=== PATIENT | female | born 1955 | race Caucasian/White ===

== ENCOUNTER 2021-02-21 09:48 | Emergency (ER) | payer OTHER, SELFPAY ==
--- NOTE | ~2021-02-21 | XR_ITS ---
EXAMINATION: XR lumbar spine min 4V DATE: 02/21/2021 11:41 INDICATION: Chronic left-sided low back pain TECHNIQUE: Anteroposterior, lateral, and bilateral oblique views of the lumbar spine, and cone-down l ateral view of the lumbosacral junction were obtained. COMPARISON: None. FINDINGS: There are 2 mm of retrolisthesis of L3 on L4 and L4 and L5 and 6 mm of anterolisthesis of L 5 on S1. There is no fracture. There is levoscoliosis of the lumbar spine. The vertebral body heights are maintained. There is moderate loss of intervertebral disc space height from L3-4 through L5-S1. Small degenerative osteophytes project from the anterior endplates of multiple vertebral bodies. Ther e is moderate facet osteoarthritis of the lower lumbar spine. IMPRESSION: 1. Moderate lumbar spondylosis without acute findings. Reviewed, dictated and finalized at location A.
[2021-02-21 09:59] VITALS: BP 159/73; PULSE 72; RESP 16; TEMP 36.4; O2SAT 100
[2021-02-21 10:40] LABS: Basophils Absolute Auto 0.1 K/mm3 (0.0-0.1); Basophils Percent Auto 0.8 % (0.2-1.2); Eosinophils Absolute Auto 0.1 K/mm3 (0-0.3); Hematocrit 44.9 % (37.0-47.0); Immature Granulocyte Absolute 0.06 K/mm3 (0.00-0.031); Immature Granulocyte Percent A 0.6 % (0-0.5); Lymphocytes Absolute Auto 1.78 K/mm3 (0.9-3.2); Mean Corpuscular HGB Conc 33.4 g/dl (32-36); Mean Corpuscular Hemoglobin 31.8 pg (26-34); Mean Corpuscular Volume 95.3 fl (80-100); Mean Platelet Volume 10.2 fl (7.4-10.4); Monocytes Absolute Auto 0.8 K/mm3 (0.1-0.6); Monocytes Percent Auto 7.5 % (2.6-8.5); Neutrophils Absolute Auto 7.7 K/mm3 (1.3-6.7); Neutrophils Percent Auto 73.1 % (45.5-73.1); Platelet Count Result 246 k/mm3 (150-375); Red Blood Count 4.71 M/mm3 (4.2-5.4); Red Cell Distribution Width 13.1 % (11.5-14.5); White Blood Count 10.5 K/mm3 (4.5-10.0)
[2021-02-21 10:43] LABS: Add Urine Microscopic? YES; Appearance Urine Clear (Clear); Bilirubin Urine Negative (Negative); Blood Urine 1+ (Negative); Color Urine Straw (Yellow); Glucose Urine UA Negative (Negative); Ketones Urine Negative (Negative); Leukocyte Esterase Ur Negative LEU/UL (Negative); Mucus Urine Rare /lpf; Nitrate Urine Negative (Negative); Protein Urine Negative (Negative); RBC Urine 0-2 /hpf (0-2); Specific Grav Ur 1.006 (1.001-1.035); Squamous Epithelial Cell Urine Moderate /hpf (Few); Urobilinogen Urine Negative mg/dL (<2.0); WBC Urine 0-3 /hpf
[2021-02-21 10:50] LABS: Alanine Aminotransferase 16 U/L (4-35); Albumin Level 4.4 g/dL (3.5-5.1); Alkaline Phosphatase 79 U/L (38-126); Anion Gap 3 mmol/L (8-16); Aspartate Amino Transferase 28 U/L (14-36); Bilirubin,Total 0.3 mg/dL (0.2-1.3); Blood Urea Nitrogen 9 mg/dL (7-17); Calcium 9.3 mg/dL (8.4-10.2); Carbon Dioxide 32 mmol/L (22-30); Chloride 100 mmol/L (98-107); Estimated CRCL calculation 67 ml/min; Estimated Glomerular Filt Rate > 60; Glucose 103 mg/dL (65-105); Sodium 135 mmol/L (137-145)
--- NOTE | 2021-02-21 12:11 | ED.GENADULT ---
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 several days ago went to outside hospital was placed on steroids and a muscle relaxer has only been taking the steroids with some improvement presents today noting that she continues to have pain patient denies any other complaints presents in no distress and ambulates with normal gait Related Data Home Medications Medication Instructions Recorded Confirmed methocarbamol mg 02/21/21 methylprednisolone mg 02/21/21 naproxen sodium [Aleve] mg PRN 02/21/21 Allergies Allergy/AdvReac Type Severity Reaction Status Date / Time amoxicillin Allergy Mild Hives Verified 02/21/21 10:06 Penicillins Allergy Mild Hives Verified 02/21/21 10:06 codeine AdvReac Mild MORPHINE Verified 02/21/21 10:06 OK (NAUSEA ONLY) Review of Systems Review of Systems: All systems reviewed & are unremarkable except as noted in HPI and below PMFSH Social History Social History (Updated 02/21/21 @ 12:23 by Paul Salgado PA-C) Smoking status: Current every day smoker Gender identity (if verbalized by the patient): Female Exam Narrative: Exam Narrative: GENERAL: Well-appearing, well-nourished, and in no acute distress. HEAD: Normocephalic, atraumatic. EYES: PERRLA and EOMI. ENT: Nares clear, no rhinorrhea or epistaxis. Mucous membranes moist. CHEST: Clear to auscultation. No respiratory distress. No wheezes rales or rhonchi HEART: Regular rate and rhythm. No murmur heard. EXTREMITIES: Normal range of motion. No edema. Tenderness of the left SI joint no midline lumbar tenderness SKIN: Warm, dry, no rash. NEURO: No focal deficits. Alert and oriented x3. Cranial nerves II through XII grossly intact. Normal speech and gait PSYCH: Normal mood and affect. Course Course Emergency Course: Patient in the room no distress aware of case findings treatment plan and diagnosis will follow with primary care and be managed outpatient with medications also given advised to contact primary care for follow-up and pain management Vital Signs Vital signs: Vital Signs Temperature 97.5 F L 02/21/21 09:59 Pulse Rate 72 02/21/21 09:59 Respiratory Rate 16 02/21/21 09:59 Blood Pressure 159/73 H 02/21/21 09:59 Pulse Oximetry 100 02/21/21 09:59 Temperature 97.5 F L 02/21/21 09:59 Pulse Rate 72 02/21/21 09:59 Respiratory Rate 16 02/21/21 09:59 Blood Pressure 159/73 H 02/21/21 09:59 Pulse Oximetry 100 02/21/21 09:59 Medical Decision Making MDM Narrative Medical decision making narrative: Patients pain is positional in nature and localized to back without signs of cord compression or cauda equina based on neurological exam, skeletal exam and history. No fever or other significant factors to suggest osteomyelitis or spinal epidural abscess. No symptoms or signs to suggest pain is referred from abdominal or / cardiopulmonary sources. No pulsatile masses noted on exam. Patient ambulates with steady gait and is stable for outpatient management given case findings. Vital Signs Vital Signs: Vital Signs Temperature 97.5 F L 02/21/21 09:59 Pulse Rate 72 02/21/21 09:59 Respiratory Rate 16 02/21/21 09:59 Blood Pressure 159/73 H 02/21/21 09:59 Pulse Oximetry 100 02/21/21 09:59 Temperature 97.5 F L 02/21/21 09:59 Pulse Rate 72 02/21/21 09:59 Respiratory Rate 16 02/21/21 09:59 Blood Pressure 159/73 H 02/21/21 09:59 Pulse Oximetry 100 02/21/21 09:59 Lab Data Result
[2021-02-21] MEDS: LIDOCAINE 5% PATCH 1 PATCH TRANSDERM (12:13)
[2021-02-21] MEDS: KETOROLAC (*BKC) 60 MG/2 ML VIAL IM (12:14)
[2021-02-21 12:44] VITALS: BP 145/70; PULSE 71; RESP 16; O2SAT 99
== END 2021-02-21 12:45 | disposition home or self-care (01) ==
PROVIDERS: Emergency Medicine Emergency Medical Services; Emergency Provider Emergency Medicine
DX: M47.26 Other spondylosis with radiculopathy, lumbar region (principal); F17.200 Nicotine dependence, unspecified, uncomplicated
CPT/HCPCS: 36415; 72110; 80053; 81001; 85025; 96372; 99283; A9270; J1885

== ENCOUNTER 2021-02-28 06:35 | Outpatient (CLI) | payer OTHER, SELFPAY ==
--- NOTE | ~2021-02-28 | XR_ITS ---
EXAMINATION: XR chest 2V DATE: 02/28/2021 07:35 INDICATION: Cough. TECHNIQUE: Frontal and lateral views of the chest were obtained. COMPARISON: None. FINDINGS: The lungs are hyperexpanded, consistent with emphysema. A calcified left lung nodule is con sistent with old granulomatous disease. No pleural effusion or pneumothorax. The heart size is normal . Breast implants are noted. IMPRESSION: 1. Emphysema. Reviewed, dictated and finalized at location B. IMPRESSION: 1. Emphysema.
[2021-02-28 07:46] LABS: Hematocrit 47.2 % (37.0-47.0); Hemoglobin 15.4 g/dL (12.0-15.0); Mean Corpuscular HGB Conc 32.6 g/dl (32-36); Mean Corpuscular Hemoglobin 31.2 pg (26-34); Mean Corpuscular Volume 95.7 fl (80-100); Mean Platelet Volume 9.9 fl (7.4-10.4); Platelet Count Result 252 k/mm3 (150-375); Red Blood Count 4.93 M/mm3 (4.2-5.4); Red Cell Distribution Width 13.2 % (11.5-14.5); White Blood Count 8.1 K/mm3 (4.5-10.0)
[2021-02-28 07:56] LABS: Alanine Aminotransferase 16 U/L (4-35); Albumin Level 4.4 g/dL (3.5-5.1); Alkaline Phosphatase 70 U/L (38-126); Anion Gap 3 mmol/L (8-16); Aspartate Amino Transferase 26 U/L (14-36); Bilirubin,Total 0.4 mg/dL (0.2-1.3); Blood Urea Nitrogen 8 mg/dL (7-17); Calcium 9.6 mg/dL (8.4-10.2); Carbon Dioxide 32 mmol/L (22-30); Chloride 103 mmol/L (98-107); Cholesterol 195 mg/dL (0-200); Estimated Glomerular Filt Rate > 60; Glucose 93 mg/dL (65-105); HDL Direct 57 mg/dL; Potassium 4.5 mmol/L (3.4-5.0); Sodium 138 mmol/L (137-145); Triglycerides 138 mg/dL (<150)
[2021-02-28 07:57] LABS: Hemoglobin A1C 5.6 % (<5.7)
[2021-02-28 07:59] LABS: Creatinine Urine 159.6 mg/dL; Rheumatoid Factor < 8.6 IU/ML (<12)
[2021-02-28 08:01] LABS: Add Urine Microscopic? YES; Appearance Urine Cloudy (Clear); Bacteria Urine Trace /hpf; Bilirubin Urine Negative (Negative); Blood Urine 1+ (Negative); Color Urine Yellow (Yellow); Glucose Urine UA Negative (Negative); Ketones Urine Negative (Negative); Leukocyte Esterase Ur Trace LEU/UL (NEGATIVE); Mucus Urine Few /lpf; Nitrate Urine Negative (Negative); Protein Urine Negative (Negative); RBC Urine 0-2 /hpf (0-2); Specific Grav Ur 1.014 (1.001-1.035); Squamous Epithelial Cell Urine Many /hpf (Few); Urobilinogen Urine Negative mg/dL (<2.0)
[2021-02-28 08:03] LABS: MALB Creatinine Ratio 6.5 mg/g (0-30); Microalbumin Urine Random 10.4 mg/L (0-16.7)
[2021-02-28 08:07] LABS: LDL Cholesterol Direct 90 mg/dL
[2021-02-28 09:15] LABS: Erythrocyte Sedimentation Rate 21 mm/hr (0-20)
[2021-02-28 09:36] LABS: Free T4 Free Thyroxine 1.15 ng/mL (0.78-2.19); Vitamin D 25 Hydroxy 13.3 ng/mL
== END 2021-02-28 06:36 | disposition home or self-care (01) ==
PROVIDERS: PCP Emergency Medicine; Visit Provider Emergency Medicine
DX: M54.5 Low back pain (principal); R31.9 Hematuria, unspecified; Z87.891 Personal history of nicotine dependence; J43.9 Emphysema, unspecified
CPT/HCPCS: 36415; 71046; 80053; 80061; 81001; 82043; 82306; 83036; 84439; 84443; 85027; 85652; 86038; 86430

== ENCOUNTER → 2021-03-28 15:10 | Outpatient (CLI) | payer OTHER, SELFPAY ==
--- NOTE | ~2021-03-28 | MM_ITS ---
EXAMINATION: MM scrn petr implant BI w silvia HISTORY: Screening mammogram TECHNIQUE: Craniocaudal and mediolateral oblique 3-D tomosynthesis images with implant displacement a nd synthetic 2-D images were generated. Craniocaudal and mediolateral oblique views of the breasts wi thout implant displacement were obtained using full field digital mammography. CAD analysis was submi tted and interpreted. COMPARISON: No prior mammogram is available for comparison at this institution. BREAST PARENCHYMAL COMPOSITION: There are scattered areas of fibroglandular density. FINDINGS: Bilateral breast implants are noted, with collapse evident on the left. There is no evidenc e of suspicious mass, calcification, or architectural distortion to suggest malignancy in either [address]. There has been no suspicious interval change. IMPRESSION: 1. No mammographic evidence of malignancy. 2. Ruptured left breast implant 3. Recommend routine screening mammography in one year. BI-RADS Category 2: Benign finding(s). Reviewed, dictated and finalized at location A.
== END ==
PROVIDERS: PCP Emergency Medicine; Visit Provider Emergency Medicine
DX: Z12.31 Encounter for screening mammogram for malignant neoplasm of breast (principal)
CPT/HCPCS: 77063; 77067

== ENCOUNTER 2021-08-22 15:45 | Outpatient (CLI) | payer OTHER, SELFPAY ==
--- NOTE | ~2021-08-22 | CT_ITS ---
EXAMINATION: CT lung screening DATE: 08/22/2021 16:37 INDICATION: Personal history of nicotine dependence, current smoker with 40 to pack year history TECHNIQUE: Computed tomography (CT) of the chest was performed without intravenous contrast. The dose -length product (DLP) was 62.85 mGy-cm. Automated exposure control and iterative reconstruction techn Gimmie[employer] were employed. COMPARISON: None FINDINGS: There is mild emphysema. No suspicious pulmonary nodules are identified. There are bilatera l fissural lymph nodes. The lungs are free of acute opacities. There is no pleural effusion or pneumo thorax. There are bilateral breast implants with collapse of the left breast implant. No pathological ly enlarged thoracic lymph nodes are identified. The heart size is normal. Calcified coronary artery atherosclerosis is noted. Cysts of the liver measure up to 12 mm. There is moderate thoracic spondylo sis. IMPRESSION: 1. Lung-RADS category 1: Negative. Continue annual screening with noncontrast low-dose chest CT in 12 months. Reviewed, dictated and finalized at location B. IMPRESSION: 1. Lung-RADS category 1: Negative. Continue annual screening with noncontrast l ow-dose chest CT in 12 months.
== END 2021-08-22 15:46 | disposition home or self-care (01) ==
PROVIDERS: PCP Emergency Medicine; Visit Provider Internal Medicine Pulmonary Disease
DX: Z12.2 Encounter for screening for malignant neoplasm of respiratory organs (principal); Z87.891 Personal history of nicotine dependence
CPT/HCPCS: 71271

== ENCOUNTER 2021-10-13 12:11 | Outpatient (CLI) | payer OTHER, SELFPAY ==
--- NOTE | ~2021-10-13 | XR_ITS ---
EXAMINATION: XR hip RT min 2V DATE: 10/13/2021 12:30 INDICATION: Right hip and groin pain TECHNIQUE: Anteroposterior , frog leg and cross-table lateral views of the right hip were obtained. COMPARISON: None. FINDINGS: Normal alignment at the right hip. No fracture. Right hip joint space is normal. Mild osteoarthritis at the bilateral sacroiliac joints. Mild lower lumbar levocurvature with moderate spondylosis. Soft t issues are unremarkable. IMPRESSION: 1. Normal right hip. 2. Moderate lower lumbar spondylosis. Reviewed, dictated and finalized at location H. RN
== END 2021-10-13 12:12 | disposition home or self-care (01) ==
LOC: ANHIMG 12:13
PROVIDERS: PCP Emergency Medicine; Visit Provider Emergency Medicine
DX: M25.551 Pain in right hip (principal); M47.896 Other spondylosis, lumbar region
CPT/HCPCS: 73502